=== PATIENT | male | born 1990 ===

== ENCOUNTER 2021-12-08 20:01 | Emergency (ER) | payer SELFPAY ==
[2021-12-08 20:45] VITALS: BP 135/72
== END 2021-12-09 03:20 | disposition left against medical advice (07) ==
LOC: ED 20:01
DX: Z13.30 Encounter for screening examination for mental health and behavioral disorders, unspecified (principal); Z53.21 Procedure and treatment not carried out due to patient leaving prior to being seen by health care provider

== ENCOUNTER 2021-12-09 11:30 | Emergency (ER) | payer SELFPAY ==
[2021-12-09 11:53] VITALS: BP 113/70
== END 2021-12-09 13:00 | disposition left against medical advice (07) ==
LOC: ED 11:30
DX: Z00.00 Encounter for general adult medical examination without abnormal findings (principal); Z53.21 Procedure and treatment not carried out due to patient leaving prior to being seen by health care provider; Z88.8 Allergy status to other drugs, medicaments and biological substances

== ENCOUNTER 2021-12-09 21:09 | Emergency (ER) | payer SELFPAY | END 2021-12-09 21:55 | disposition left against medical advice (07) | LOC: ED 21:09 | DX: R41.0 Disorientation, unspecified (principal); Z53.21 Procedure and treatment not carried out due to patient leaving prior to being seen by health care provider ==

== ENCOUNTER 2021-12-17 10:48 | Emergency (ER) | payer SELFPAY ==
[2021-12-17 11:02] VITALS: BP 123/60
== END 2021-12-17 12:11 | disposition left against medical advice (07) ==
LOC: ED 10:48
DX: R11.0 Nausea (principal); R06.00 Dyspnea, unspecified; Z53.21 Procedure and treatment not carried out due to patient leaving prior to being seen by health care provider

== ENCOUNTER 2021-12-21 01:29 | Emergency (ER) | payer SELFPAY ==
[2021-12-21 01:48] VITALS: BP 131/84
== END 2021-12-21 05:24 | disposition left against medical advice (07) ==
LOC: ED 01:29
DX: Z13.30 Encounter for screening examination for mental health and behavioral disorders, unspecified (principal); Z53.21 Procedure and treatment not carried out due to patient leaving prior to being seen by health care provider